=== PATIENT | male | born 1985 | race Hispanic/Latino ===

== ENCOUNTER 2018-07-12 07:51 | Emergency (ER) | payer MEDICAID, OTHER | END 2018-07-12 08:34 | disposition home or self-care (01) | LOC: EDH 07:51 | DX: F41.9 Anxiety disorder, unspecified (principal); F32.9 Major depressive disorder, single episode, unspecified; Z79.899 Other long term (current) drug therapy; Z72.0 Tobacco use ==

== ENCOUNTER 2025-05-10 12:19 | Emergency (ER) | payer BC, SELFPAY ==
[~2025-05-10] VITALS: Ht 177.8 cm; Wt 116.1 kg
--- NOTE | 2025-05-10 12:31 | ERN ---
ED Note History of Present Illness Stated Complaint: ANXIETY Chief Complaint: Anxiety/Panic Attack Time Seen by MD: 12:26 Dictation: PATIENT IS A 39-YEAR-OLD MALE WITH SEVERAL COMPLAINTS. 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 HE STATES HE WAS SEEING HIS PRIMARY CARE DOCTOR DR. HESS WHO WAS GIVEN HIM XANAX FOR HIS ANXIETY AND HIS BACK PAIN, BUT HE STILL ON NO LONGER PRESCRIBE IT. THE 2ND COMPLAINT IS AT HE HAD HIS LAST XANAX YESTERDAY WHEN HE WENT TO [facility] IN HIS NOW HERE AT [facility] REQUESTING A REFILL. THIRD COMPLAINT IS THAT HE SAID HE IS HAVING CHEST PAIN THAT DOES NOT RADIATE OFF AND ON FOR THIS MORNING. NO HISTORY OF CAD. FINALLY, HE RELATES A STORY OF BEING TESTED FOR DRUGS LATE MARCH AND WAS POSITIVE FOR [facility] THEY DID BOUGHT ON THE STREET. Allergies: Coded Allergies: No Known Drug Allergies (Unverified Allergy, Unknown, 05/10/25) Past Medical History Social History: Drugs RN Note Reviewed/Agreed w/PFSH: Yes Review of System Dictation CONSTITUTIONAL: NEGATIVE EXCEPT FOR HPI HEAD/FACE: NEGATIVE EXCEPT FOR HPI EENT: NEGATIVE EXCEPT FOR HPI RESPIRATORY: NEGATIVE EXCEPT FOR HPI CHEST PAIN/ANXIETY GASTROINTESTINAL/ABDOMINAL: NEGATIVE EXCEPT FOR HPI GENITOURINARY: NEGATIVE EXCEPT FOR HPI MUSCULOSKELETAL: NEGATIVE EXCEPT FOR HPI INTEGUMENTARY: NEGATIVE EXCEPT FOR HPI NEUROLOGICAL/PSYCH: NEGATIVE EXCEPT FOR HPI HEMATOLOGIC/LYMPHATIC: NEGATIVE EXCEPT FOR HPI ALL SYSTEMS NEGATIVE, EXCEPT NOTED ABOVE. 13 POINT REVIEW OF SYSTEMS ASSESSED AND ALL NEGATIVE EXCEPT FOR ABOVE. Initial Vital Sign VS Vital Signs Date Time Temp Pulse Resp B/P (MAP) Pulse Ox O2 Delivery O2 Flow Rate FiO2 05/10/25 12:26 98.4 80 18 143/80 98 Room Air 0 05/10/25 12:51 21 Physical Exam Dictation VITAL SIGNS REVIEWED GENERAL APPEARANCE: ALERT, ORIENTED X 3, NO ACUTE DISTRESS, WELL DEVELOPED, NOURISHED. HEAD AND FACE: NON-TRAUMATIC. EYES: PERRL, PINK CONJUNCTIVAS, EYELID NO TRAUMA, ANTERIOR CHAMBER WITH ARCUS SENILIS. EARS: PINNAS INTACT AND NO SIGNS OF TRAUMA OR ERYTHEMA EAR CANALS CLEAR AND NO DISCHARGE TM NO ERYTHEMA NOSE: NO DISCHARGE, NO BLEEDING. OROPHARYNX: MOUTH NORMAL, TONGUE PINK, PHARYNX CLEAR,NO ERYTHEMA, TONSILS NO EXUDATES, NO ABSCESSES NOTED, MUCOUS MEMBRANE MOIST NECK: SUPPLE, NON-TENDER, NO THYROMEGALY, NO MASSES, NO JVD, NO BRUITS BREAST:DEFERRED CHEST:NO TENDERNESS, NO CREPITUS, NO PARADOXICAL MOVEMENT, NO RETRACTIONS LUNGS:CLEAR, WELL-VENTILATED, SYMMETRIC, NO RALES, NO WHEEZING, NO RHONCHI, NO STRIDOR, GOOD BREATH SOUNDS BILATERALLY HEART: REGULAR RATE, REGULAR RHYTHM, NO MURMUR, NO GALLOPS VASCULAR: NO PERIPHERAL EDEMA, ABDOMEN: SOFT, POSITIVE BOWEL SOUNDS, NONDISTENDED, NO GUARDING, NONTENDER, NO REBOUND, NO MASSES NO HEPATOMEGALY, NO SPLENOMEGALY, NO ABDI'S SIGN, NO HERNIAS. RECTAL: DEFERRED GENITAL: DEFERRED NEUROLOGICAL: NORMAL SPEECH, MOTOR FUNCTION INTACT, SENSORY FUNCTION INTACT MUSCULOSKELETAL: NECK NONTENDER, FULL RANGE OF MOTION, BACK NONTENDER, FULL RANGE OF MOTION, EXTREMITIES: NONTENDER, FULL RANGE OF MOTION SKIN: COLOR PINK, DRY, NO TURGOR, NO RASH, NO LACERATIONS, NO ABRASIONS, NO CONTUSIONS. LYMPHATIC: DEFERRED Results (Laboratory/Radiology) Laboratory/Radiology Laboratory Tests Test 05/10/25 12:50 Troponin I High Sensitivity 4 ng/L (4-75) Labs Reviewed?: Yes EKG: (+) NSR EKG Comment: 1230/EKG NORMAL SINUS RHYTHM/HEART RATE 77/AXIS NORMAL/NO ECTOPY. ED Course ED Course Orders Procedure Category Date Status Time 12 Lead Ekg Tracing- EKG 05/10/25 Complete Technical 12:27 Troponin I High LAB 05/10/25 Complete Sensitivity 12:27 Diazepam 2 Mg Tab PHA 05/10/25 Complete (Valium 2 Mg Tab) 12:30 Current Medications Medications (Trade) Dose Ordered Sig/Grace Route PRN Reason Start Time Stop Time Status Last Admin Dose Admin Diazepam (VALium 2 mg Tab) 2 mg ONCE ONCE PO 05/10/25 12:30 05/10/25 12:32 DC Vital Signs Date Time Temp Pulse Resp B/P (MAP) Pulse Ox O2 Delivery O2 Flow Rate FiO2 05/10/25 12:51 98.8 87 20 133/86 95 Room Air* 0 21 05/10/25 12:26 98.4 80 18 143/80 98 Room Air 0 1232/I ADVISED PATIENT IN TRIAGE THAT THERE WOULD BE NO REFILLS FOR XANAX I WE WILL PROVIDE HIM SOMETHING WHILE HE IS HERE IN THE EMERGENCY ROOM AND HE CAN FOLLOW UP WITH HIS PRIMARY CARE DOCTOR, DR. HESS OR I WOULD GIVE HIM A LIST OF PRIMARY CARE DOCTORS FOR FOLLOW UP HEART Score Response (Comments) Value History: Low suspicion (0) 0 EKG: Normal 0 Age: < 45yrs (0) 0 Risk Factors: No known risk factors (0) 0 Initial Troponin: Normal limit (0) 0 Total 0 Medical Decision Making MDM MEDICAL DECISION-MAKING BASED ON TROPONIN EKG. BOTH ARE NEGATIVE PATIENT WAS PROVIDED WITH ONE VALIUM 2 MG TABLET ADVISED TO SEE HIS PRIMARY CARE DOCTOR BARRIE HESS FOR REFILLS ON HIS CONTROLLED SUBSTANCES DX & DISP Disposition: Discharge Departure Impression: Primary Impression: Atypical chest pain Additional Impression: Anxiety Condition: Stable Additional Instructions: FOLLOW-UP WITH PRIMARY CARE PROVIDER IN 1 TO 2 DAYS. TAKE MEDICATIONS DIRECTED HERE IN THE EMERGENCY ROOM. OKAY TO CONTINUE HOME MEDICATIONS UNLESS OTHERWISE DISCUSSED DURING YOUR VISIT IN THE EMERGENCY ROOM TODAY. RETURN TO YOUR NEAREST EMERGENCY ROOM IF SYMPTOMS WORSEN OR IF THERE IS NO IMPROVEMENT. CALL 911 IF YOU NEED IMMEDIATE ASSISTANCE. TAKE TYLENOL OR MOTRIN [id number] NEEDED AND IF NO CONTRAINDICATIONS ARE PRESENT. INCREASE ORAL HYDRATION. A WOUND CULTURE OR URINE CULTURE WAS ORDERED HERE IN THE EMERGENCY ROOM DEPARTMENT PLEASE FOLLOW-UP WITH PRIMARY CARE PROVIDER AND ADVISE THEM TO GET REPEAT PORTS FROM OUR FACILITY. IF YOU HAD ANY KAYLIE WRAP/SPLINTS THAT WERE APPLIED HERE, PLEASE DO NOT REMOVE THEM UNTIL YOU SEE YOUR PRIMARY CARE OR SPECIALTY. FOLLOW UP WITH THE YOUR PRIMARY CARE DOCTOR OR SEE ONE OF THE DOCTORS ON THE LIST PROVIDED YOU IN THE NEXT SEVERAL DAYS FOR YOUR PRESCRIPTION REFILLS Referrals: JEREMIAH PARRA MD (PCP) Time of Disposition: 13:28 I have reviewed the case, and I agree with, Diagnosis and Plan ADRIANNE WAHL May 10, 2025 12:31
[2025-05-10 12:51] VITALS: BP 133/86; PULSE 87; RESP 20; TEMP 98.7; O2SAT 95
--- NOTE | 2025-05-10 13:04 | EKG ---
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
[2025-05-10] MEDS: diazePAM 2 MG TAB PO ONE (13:31)
== END 2025-05-10 13:39 | disposition home or self-care (01) ==
LOC: EDH 12:19
DX: R07.89 Other chest pain (principal); F41.9 Anxiety disorder, unspecified; M54.9 Dorsalgia, unspecified
CPT/HCPCS: 84484; 93005; 99284